=== PATIENT | male | born 2000 | race Caucasian/White ===

== ENCOUNTER 2022-04-26 13:14 | Outpatient (REF) | payer OTHER, SELFPAY ==
[2022-04-26 19:54] LABS: ALT 27 U/L (16-63); AST 20 U/L (15-37); Albumin 4.4 g/dL (3.4-5.0); Alkaline Phosphatase 82 U/L (46-116); Anion Gap 5.6 mmol/L (3-11); BUN 16 mg/dL (7-18); Bilirubin, Total 1.6 mg/dL (0.2-1.0); CO2 31.4 mmol/L (21.0-32.0); Calcium 9.5 mg/dL (8.5-10.1); Calculated LDL 89 mg/dL (<100); Chloride 105 mmol/L (98-107); Cholesterol 172 mg/dL (<200); Estimated GFR 108.46 (mL/min/1.73m2); Glucose 96 mg/dL (74-106); HDL Cholesterol 64 mg/dL (40-60); Sodium 142 mmol/L (136-145); TSH 2.19 uIU/mL (0.36-3.74); Total Protein 7.6 g/dL (6.4-8.2); Triglyceride 95 mg/dL (<150)
== END 2022-04-26 13:15 | disposition home or self-care (01) ==
LOC: NCHCN 13:14
PROVIDERS: Visit Provider Physician Assistant
DX: F41.1 Generalized anxiety disorder (principal); D33.7 Benign neoplasm of other specified parts of central nervous system; F90.8 Attention-deficit hyperactivity disorder, other type; Z00.00 Encounter for general adult medical examination without abnormal findings; F33.8 Other recurrent depressive disorders; Z13.220 Encounter for screening for lipoid disorders
CPT/HCPCS: 80053; 80061; 84443